=== PATIENT | female | born 1970 | race Caucasian/White ===

== ENCOUNTER 2017-04-17 10:27 | Emergency (ER) | payer OTHER ==
[2017-04-17 11:01] VITALS: BP 124/85
--- NOTE | 2017-04-17 11:36 | UC ---
Respiratory Complaint HPI - HPI Summary HPI Summary: 47 yo female with fever and cough x 1 week productive at times no n/v/d no SOB chest and back sore from coughing - History of Current Complaint Chief Complaint: UCRespiratory Stated Complaint: COUGH, FEVER Time Seen by Provider: 04/17/17 11:00 Hx Obtained From: Patient Hx Last Menstrual Period: 04/09/17 Onset/Duration: Gradual Onset, Lasting Weeks - 1 Timing: Constant Severity Initially: Mild Severity Currently: Moderate Pain Intensity: 4 Pain Scale Used: 0-10 Numeric Character: Cough: Productive - at times Alleviating Factors: Nothing Associated Signs And Symptoms: Positive: Fever, Chills - Allergies/Home Medications Allergies/Adverse Reactions: Allergies Allergy/AdvReac Type Severity Reaction Status Date / Time Adhesive Tape Allergy Rash Verified 04/17/17 11:01 Bacitracin [From Neosporin] Allergy Rash Verified 04/17/17 11:01 Neomycin [From Neosporin] Allergy Rash Verified 04/17/17 11:01 Polymyxin B [From Neosporin] Allergy Rash Verified 04/17/17 11:01 Sulfa Antibiotics Allergy GI Upset Verified 04/17/17 11:01 PMH/Surg Hx/FS Hx/Imm Hx Previously Healthy: Yes Respiratory History: Bronchitis, Pneumonia - Surgical History Surgical History: Yes Surgery Procedure, Year, and Place: T&A - Family History Known Family History: Positive: Diabetes Negative: Cardiac Disease, Hypertension, Renal Disease - Social History Alcohol Use: Occasionally Substance Use Type: None Smoking Status (MU): Never Smoked Tobacco - Immunization History Most Recent Influenza Vaccination: no Review of Systems Constitutional: Fever, Chills Skin: Negative Eyes: Negative ENT: Negative Respiratory: Cough Cardiovascular: Negative Gastrointestinal: Negative Genitourinary: Negative Motor: Negative Neurovascular: Negative Musculoskeletal: Negative Neurological: Negative Psychological: Negative All Other Systems Reviewed And Are Negative: Yes Physical Exam Triage Information Reviewed: Yes Appearance: Well-Appearing, No Pain Distress, Well-Nourished Vital Signs: Initial Vital Signs Temp 100.1 F 04/17/17 10:58 Pulse 72 04/17/17 10:58 Resp 18 04/17/17 10:58 BP 124/85 04/17/17 10:58 Pulse Ox 98 04/17/17 10:58 Eyes: Positive: Conjunctiva Clear ENT: Positive: Hearing grossly normal. Negative: Pharyngeal erythema, Nasal congestion, Nasal drainage, Tonsillar exudate, Trismus, Muffled/hoarse voice Neck: Positive: Supple, Nontender, No Lymphadenopathy Respiratory: Positive: No respiratory distress, No accessory muscle use, Crackles - left sided Cardiovascular: Positive: RRR, No Murmur Musculoskeletal: Positive: Strength Intact, ROM Intact Neurological: Positive: Alert Psychological: Positive: Normal Response To Family Skin Exam: Normal UC Diagnostic Evaluation - Laboratory O2 Sat by Pulse Oximetry: 98 - normal/not hypoxic - Radiology Xray Interpretation: Positive (See Comments) - The constellation of findings favors mild bronchopneumonia Radiology Interpretation Completed By: Radiologist Respiratory Course/Dx - Differential Dx/Diagnosis Provider Diagnoses: bronchopneumonia Discharge - Discharge Plan Condition: Stable Disposition: HOME Prescriptions: Amoxicillin PO (*) [Amoxicillin 875 MG (*)] 875 mg PO BID #20 tab Benzonatate CAP* [Tessalon CAP*] 100 - 200 mg PO TID PRN #[id number] cap PRN Reason: Cough Patient Education Materials: Acute Bronchitis (ED) Referrals: Ada Stuart MD [Primary Care Provider] - 4 Days (recheck in 3-4 days if not better) Additional Instructions: XR showed bronchopneumonia
--- NOTE | 2017-04-17 11:39 | RAD ---
INDICATION: Chest pain, cough, fever, LEFT-sided rales. COMPARISON: November 21, 2005 TECHNIQUE: Dual energy PA and routine lateral views of the chest were obtained. REPORT: Mild prominence of the interstitial markings and patchy alveolar opacities. Minimal linear subsegmental atelectasis at the RIGHT mid to lower lung zone. Negative for pleural effusion or pneumothorax. The heart, pulmonary vasculature, and mediastinal contours are unremarkable. IMPRESSION: The constellation of findings favors mild bronchopneumonia.
== END 2017-04-17 12:05 | disposition home or self-care (01) ==
LOC: UCCORT 10:27
DX: J18.0 Bronchopneumonia, unspecified organism (principal); Z88.3 Allergy status to other anti-infective agents; Z88.2 Allergy status to sulfonamides
CPT/HCPCS: 71020; 99212; G0463